=== PATIENT | female | born 1945 | race Caucasian/White ===

== ENCOUNTER 2018-06-15 08:47 | Day surgery (SDC) | payer MEDICARE ==
[2018-06-15] MEDS ORDERED: EPINEPHRINE 1 MG/ML AMPUL SQ ONE (08:48)
[2018-06-15] MEDS ORDERED: TETRACAINE HCL 0.5% 15 ML OPTH BTL OPTH ONE (08:48)
[2018-06-15] MEDS ORDERED: LIDOCAINE 2% MDV (20MG/ML) 20ML VIAL IV ONE (08:48)
[2018-06-15] MEDS ORDERED: CIPROFLOXACIN HCL 0.0015 GM, PHENYLEPHRINE HCL 0.05 GM, KETOROLAC TROMETHAMINE 0.000625 GM MC ONE ×5 (12:45)
[2018-06-15] MEDS ORDERED: FENTANYL PF 100MCG/2ML VIAL IV ONE (14:54)
[2018-06-15] MEDS ORDERED: PROPOFOL 10 MG/ML VIAL IV ONE (14:54)
--- NOTE | 2018-06-17 13:37 | Operative Note ---
DATE OF PROCEDURE: 06/15/18. PREOPERATIVE DIAGNOSIS: Nuclear sclerotic cataract, right eye. POSTOPERATIVE DIAGNOSIS: Nuclear sclerotic cataract, right eye. OPERATION: Phacoemulsification of cataractous lens with implantation of intraocular lens. LENS IMPLANT USED: Austin Model PCB00 + 24.0 diopters. COMPLICATIONS: None. PROCEDURE IN DETAIL: Following a retrobulbar and facial block, the patient was prepped and draped in the usual fashion for eye surgery. A lid speculum was placed in the right eye after which a 2.4 mm tunnel wound was placed at the temporal limbus and dissected into clear cornea. A paracentesis was placed at 2 o'clock hours to the left and right of the initial incision and the chamber deepened with Viscoelastic. The keratome was then used to enter the anterior chamber after which the continuous circular capsulorrhexis was accomplished without difficulty using a bent needle and a Utrata forceps. Hydrodissection and hydrodelineation of the lens was performed after which the nucleus of the lens was removed using the Phaco handpiece in the [id number] technique. The residual cortical material was irrigated and aspirated from the eye after which the bag and chamber were re-examined. The bag was re-inflated with Viscoelastic and the intraocular lens injected into the capsular bag where it centered well. The Viscoelastic was then copiously irrigated and aspirated from the eye after which the temporal tunnel wound and paracentesis were hydrated and the wounds were examined. They were noted to be watertight. The lid speculum was removed from the eye and the eye patched and shielded. The patient was transferred to the recovery room in satisfactory condition and given an appointment to be reexamined in the clinic later today or as directed by Dr. Briceno. JOB NUMBER: [id number] MTDD
== END 2018-06-15 11:45 | disposition home or self-care (01) ==
LOC: SUR 08:47
PROVIDERS: ATTEND Ophthalmology
DX: H25.11 Age-related nuclear cataract, right eye (principal); I10 Essential (primary) hypertension; E78.00 Pure hypercholesterolemia, unspecified; K21.9 Gastro-esophageal reflux disease without esophagitis; K57.90 Diverticulosis of intestine, part unspecified, without perforation or abscess without bleeding
CPT/HCPCS: 66984; 00142; J3010; J0171

== ENCOUNTER 2018-06-29 09:29 | Day surgery (SDC) | payer MEDICARE ==
[2018-06-29] MEDS ORDERED: LIDOCAINE 2% MDV (20MG/ML) 20ML VIAL IV ONE ×2 (09:30)
[2018-06-29] MEDS ORDERED: EPINEPHRINE 1 MG/ML AMPUL SQ ONE (09:30)
[2018-06-29] MEDS ORDERED: TETRACAINE HCL 0.5% 15 ML OPTH BTL OPTH ONE (09:30)
[2018-06-29] MEDS ORDERED: LIDOCAINE 1% MPF 100MG/10ML STERILE-PAK AMPULE IV ONE (09:30)
[2018-06-29] MEDS ORDERED: PROPOFOL 10 MG/ML VIAL IV ONE (09:30)
[2018-06-29] MEDS ORDERED: NEOMYCIN/POLY./DEXAM OPTH OINT OPTH ONE (09:30)
[2018-06-29] MEDS ORDERED: ALFENTANIL HCL 500 MCG/1ML, 2ML AMP IV ONE (09:30)
[2018-06-30] MEDS ORDERED: CIPROFLOXACIN HCL 0.0015 GM, PHENYLEPHRINE HCL 0.05 GM, KETOROLAC TROMETHAMINE 0.000625 GM MC ONE ×5 (09:00)
--- NOTE | 2018-07-01 14:08 | Operative Note ---
DATE OF PROCEDURE: 06/29/18. PREOPERATIVE DIAGNOSIS: Nuclear sclerotic cataract, left eye. POSTOPERATIVE DIAGNOSIS: Nuclear sclerotic cataract, left eye. OPERATION: Phacoemulsification of cataractous lens with implantation of intraocular lens. LENS IMPLANT USED: Austin Model PCB00 + 22.0 diopters. COMPLICATIONS: None. PROCEDURE IN DETAIL: Following a retrobulbar and facial block, the patient was prepped and draped in the usual fashion for eye surgery. A lid speculum was placed in the left eye after which a 2.4 mm tunnel wound was placed at the temporal limbus and dissected into clear cornea. A paracentesis was placed at 2 o'clock hours to the left and right of the initial incision and the chamber deepened with Viscoelastic. The keratome was then used to enter the anterior chamber after which the continuous circular capsulorrhexis was accomplished without difficulty using a bent needle and a Utrata forceps. Hydrodissection and hydrodelineation of the lens was performed after which the nucleus of the lens was removed using the Phaco handpiece in the [id number] technique. The residual cortical material was irrigated and aspirated from the eye after which the bag and chamber were re-examined. The bag was re-inflated with Viscoelastic and the intraocular lens injected into the capsular bag where it centered well. The Viscoelastic was then copiously irrigated and aspirated from the eye after which the temporal tunnel wound and paracentesis were hydrated and the wounds were examined. They were noted to be watertight. The lid speculum was removed from the eye and the eye patched and shielded. The patient was transferred to the recovery room in satisfactory condition and given an appointment to be reexamined in the clinic later today or as directed by Dr. Briceno. JOB NUMBER: [id number] [facility]
== END 2018-06-29 12:32 | disposition home or self-care (01) ==
LOC: SUR 09:29
PROVIDERS: ATTEND Ophthalmology
DX: H25.12 Age-related nuclear cataract, left eye (principal); I10 Essential (primary) hypertension; E78.00 Pure hypercholesterolemia, unspecified; Z86.73 Personal history of transient ischemic attack (TIA), and cerebral infarction without residual deficits
CPT/HCPCS: J0171; J3490

== ENCOUNTER 2019-01-29 11:15 | Day surgery (SDC) | payer MEDICARE ==
[2019-01-29] MEDS ORDERED: PROPOFOL 10 MG/ML VIAL IV ONE (11:16)
[2019-01-29] MEDS ORDERED: LIDOCAINE 2% MDV (20MG/ML) 20ML VIAL IV ONE (11:16)
--- NOTE | 2019-01-29 16:00 | Operative Note ---
DATE OF SURGERY: 01/29/2019 OPERATION: COLONOSCOPY to the cecum. INDICATION: Maternal history of colon cancer, high-risk screening. Last examination was 5 years ago. ANESTHESIA: Intravenous sedation was administered by the department of anesthesiology and included Diprivan titrated to effect. PROCEDURE: Following informed consent from this alert individual including a discussion of the risks and benefits of the procedure and an opportunity for the patient to ask questions, the patient was in the left lateral decubitus position. A digital rectal examination was performed. No abnormalities were noted. Following this, the Olympus [id number] video colonoscope was inserted into the rectum without resistance. The rectal mucosa had a normal appearance with normal folds and distensibility. The colonoscope was advanced up through the colon to the level of the cecum without much difficulty. Throughout the bowel the mucosa appeared normal, the folds were normal, and the bowel was fairly well distensible. Scattered diverticula were noted throughout the left colon. The cecum was defined by noting the appendiceal orifice and ileocecal valve. The colon preparation overall was good. From the base of the cecum, the colonoscope was then withdrawn. Again diverticulosis was noted in the left colon. No other changes were appreciated. Retroflexion in the rectum did reveal small internal hemorrhoids. The endoscope was straightened and withdrawn. The patient tolerated the procedure well and was returned to the recovery area in stable condition. IMPRESSION: 1. Left colonic diverticulosis. 2. Small internal hemorrhoids. RECOMMENDATIONS: The patient was advised she could have a recheck colonoscopy if she desires and is medically able in the next 5 years. She can otherwise follow up with Dr. Montiel. As always, thank you for allowing me to participate in the care of your patient. CC: MD TAYLOR Adair
== END 2019-01-29 13:30 | disposition home or self-care (01) ==
LOC: HOP 11:15
PROVIDERS: ATTEND Internal Medicine Gastroenterology
DX: Z12.11 Encounter for screening for malignant neoplasm of colon (principal); Z80.0 Family history of malignant neoplasm of digestive organs; K57.30 Diverticulosis of large intestine without perforation or abscess without bleeding; I10 Essential (primary) hypertension; E78.00 Pure hypercholesterolemia, unspecified; M19.90 Unspecified osteoarthritis, unspecified site

== ENCOUNTER 2019-03-02 16:08 | Emergency (ER) | payer MEDICARE ==
--- NOTE | 2019-03-02 16:16 | Emergency Department Record ---
History of Present Illness - General Chief Complaint: Abdominal Pain Stated Complaint: ABD PAIN Time Seen by Provider: 03/02/19 16:11 Source: Patient Mode of Arrival: Ambulatory Limitations: No limitations - History of Present Illness Initial Comments: 73 yo female presents with abdominal pain. The pain is on the left side. It is tender to palpation. She has associated loose stools. The onset was over the last one day. She has a history of recurrent diverticulitis. No fever. No vomiting. No blood in the stools. No dysuria. No rash or back pain. MD Complaint: Abdominal pain -: Days(s) Location: LUQ, LLQ Radiation: LUQ, LLQ Migration to: LUQ, LLQ Quality: Aching Consistency: Constant Improves With: Nothing Worsens With: Movement Context: Other Associated Symptoms: Diarrhea - Related Data Previous Rx's Medication Instructions Recorded Levofloxacin [Levaquin Tab] 500 mg PO DAILY #7 tab 03/02/19 Metronidazole [Flagyl] 500 mg PO Q8H #21 tablet 03/02/19 Allergies Allergy/AdvReac Type Severity Reaction Status Date / Time Penicillins Allergy Intermediate hives Verified 03/02/19 16:18 Sulfa (Sulfonamide Allergy Intermediate hives Verified 03/02/19 16:18 Antibiotics) ciprofloxacin [From Cipro] Allergy tendon Verified 03/02/19 16:18 separation ciprofloxacin HCl Allergy tendon Verified 03/02/19 16:18 [From Cipro] separation Review of Systems Constitutional: Denies: Chills, Fever, Malaise, Weakness Eyes: Denies: Eye discharge ENT: Denies: Congestion, Throat pain Respiratory: Denies: Cough, Dyspnea Cardiovascular: Denies: Chest pain, Palpitations, Syncope Endocrine: Denies: Fatigue, Polydipsia, Polyuria Gastrointestinal: Reports: Abdominal pain, Diarrhea. Denies: Constipation, Nausea, Vomiting Genitourinary: Denies: Dysuria, Urgency Musculoskeletal: Denies: Arthralgia, Back pain, Joint swelling, Myalgia Skin: Denies: Bruising, Change in color, Rash Neurological: Denies: Headache Psychiatric: Denies: Anxiety Hematological/Lymphatic: Denies: Easy bleeding, Easy bruising Past Medical History - SOCIAL HISTORY Smoking Status: Never smoker - RESPIRATORY Hx Respiratory Disorders: No - CARDIOVASCULAR Hx Cardio Disorders: Yes Hx Abnormal EKG: Yes (extra"little blip"-no problems per DR) Hx Edema: Yes (Bumex PRN) Hx Hypertension: Yes (meds good control) Hx Vascular Disease: Yes ("fibromuscular dysplasia-DR Lee from [facility]) - NEURO Hx Neuro Disorders: Yes 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) - GI Hx GI Disorders: Yes Hx Diverticulitis: Yes Hx Reflux: Yes (buffer from Aleve usage) - Hx Genitourinary Disorders: No - ENDOCRINE Hx Endocrine Disorders: No - MUSCULOSKELETAL Hx Musculoskeletal Disorders: Yes Hx Arthritis: Yes - PSYCH Hx Psych Problems: No - HEMATOLOGY/ONCOLOGY Hx Hematology/Oncology Disorders: No Family Medical History Hx Cancer: Father, Mother Hx Dementia: Mother Hx Heart Disease: Father Hx HTN: Mother Hx Resp Disorders: Mother *Resp Comment: allergies Physical Exam - General General Appearance: Alert, Oriented x3, Cooperative, No acute distress Limitations: No limitations - Head Head exam: Atraumatic, Normal inspection - Eye Eye exam: Normal appearance, Conjunctival injection - ENT ENT exam: Normal exam Ear exam: Normal external inspection Nasal Exam: Normal inspection Mouth exam: Normal external inspection - Neck Neck exam: Normal inspection - Respiratory Respiratory exam: Normal lung sounds bilaterally. negative: Respiratory distress - Cardiovascular Cardiovascular Exam: Regular rate, Normal rhythm, Normal heart sounds - GI/Abdominal GI/Abdominal exam: Soft, Tenderness (tender left lateral abdomen and LLQ. Soft. No rebound or guarding.). negative: Distended, Guarding, Rebound, Rigid - Rectal Rectal exam: Deferred - exam: Deferred - Extremities Extremities exam: Normal inspection. negative: Tenderness - Back Back exam: Denies: CVA tenderness (R), CVA tenderness (L), Tenderness - Neurological Neurological exam: Alert, Oriented X3 - Psychiatric Psychiatric exam: Normal affect, Normal mood. negative: Agitated, Anxious - Skin Skin exam: Dry, Intact, Normal color, Warm Course - Reevaluation(s) Reevaluation #1: 03/02/19 17:43 The CBC was normal The CMP was normal The UA is negative for signs if infection The CT scan demonstrates hepatic and renal cysts. Follow up MRI if indicated of the small areas noted in the L kidney. Prominent diverticulosis without d iverticulitis. 03/02/19 17:57 The results were reviewed with the patient. I discussed the normal findings. We discussed the symptoms clinically very consistent with her many episodes of diverticulitis. We discussed treating what clinically is possibly diverticulitis vs watchful waiting with the risk of worsening. The patient states she has had diverticulitis many times and this is identical to her symptoms. We discussed the risks of taking antibiotics vs watching again. She prefers treatment given the tenderness and symptoms vs watching. She understands this is not risk free (reactions, diarrhea, tendonitis). She had tendonitis with cipro in the past but no issues with Levaquin. I explained they are the same class and the risk is still there. She understands. Her allergy list makes her treatment options limited. She also will consider a little more time of monitoring at home. Either way, I encourage her strongly to return if worse for a recheck this weekend in the ED. 03/02/19 18:10 Medical Decision Making - Lab Data Result diagrams: 03/02/19 16:15 03/02/19 16:15 Disposition Disposition: Discharge Clinical Impression: Diarrhea, Abdominal pain Disposition: Home, Self-Care Condition: (1) Good Instructions: Acute Diarrhea (ED), Abdominal Pain (ED) Additional Instructions: Call your doctor for the next available follow up appointment Review this ER visit and the tests performed with your family doctor Return to the ER for a recheck if worse, any new concerns or questions Take the prescriptions provided as directed Prescriptions: Metronidazole [Flagyl] 500 mg PO Q8H #21 tablet Levofloxacin [Levaquin Tab] 500 mg PO DAILY #7 tab Forms: Patient Portal Access Time of Disposition: 17:57 Quality - Quality Measures Quality Measures: N/A - Blood Pressure Screening Does Patient Have Any of the Following: Active Dx of HTN Blood Pressure Classification: Hypertensive Reading Systolic Measurement: 168 Diastolic Measurement: 75 Screening for High Blood Pressure: Patient Exclusion, Hx of HTN [G9744]
[2019-03-02 16:23] LABS: ABSOLUTE NEUTROPHIL COUNT 5.95; EOS % 4.1 % (0-6); GRAN % 63.6 % (47-80); HEMATOCRIT 47.1 % (35.0-47.0); HEMOGLOBIN 15.4 gm/dl (11.6-16.0); LYMPH % 23.6 % (16-45); MEAN CELL VOLUME 87.2 fl (81-97); MEAN CORPUSCULAR HEMOGLOBIN 28.5 pg (27-33); MEAN CORPUSCULAR HGB CONC 32.7 g/dl (32-36); MEAN PLATELET VOLUME 10.1 fl (7.4-10.4); MONO % 7.7 % (0-9); PLATELET COUNT 238 K/uL (130-400); RED CELL DISTRIBUTION WIDTH 15.2 % (11.5-14.5); WHITE BLOOD COUNT W/O DIFF 9.4 K/uL (4.2-12.2)
[2019-03-02 16:34] LABS: BLOOD UREA NITROGEN 19 mg/dL (8-23); CREATININE 0.7 mg/dL (0.5-0.9); EST GLOMERULAR FILTRATION RATE > 60 mL/min
[2019-03-02 16:37] LABS: GLUCOSE,RANDOM 106 mg/dL (74-109)
[2019-03-02 17:34] LABS: URINE APPEARANCE CLEAR; URINE BILIRUBIN NEGATIVE (NEGATIVE); URINE BLOOD TRACE-I (NEGATIVE); URINE COLOR YELLOW; URINE GLUCOSE (UA) NEGATIVE (NEGATIVE); URINE KETONE NEGATIVE (NEGATIVE); URINE LEUKOCYTE ESTERASE NEGATIVE (NEGATIVE); URINE NITRITE NEGATIVE (NEGATIVE); URINE PROTEIN NEGATIVE (NEGATIVE); URINE UROBILINOGEN 0.2 E.U./dL (0.20 - 1.00)
[2019-03-02 17:53] LABS: URINE EPITHELIAL CELLS 0 - 2 (FEW); URINE MUCUS LIGHT; URINE RBC 0 - 2 (NONE SEEN); URINE WBC 0 - 2 (0-2/hpf)
--- NOTE | 2019-03-05 19:28 | CT SCAN REPORT ---
DATE: 03/02/2019 at 5:06 p.m. EXAM: EMERGENCY CT OF THE ABDOMEN AND PELVIS WITH CONTRAST. HISTORY: LEFT LOWER QUADRANT ABDOMINAL PAIN, DIARRHEA. TECHNIQUE: Axial CT scan of the abdomen and pelvis was obtained following intravenous contrast. No oral contrast was utilized at the referring physician's request. Please see the medical record for intravenous contrast specifics. COMPARISON: None. FINDINGS: No calcified gallstones are seen within the gallbladder. There are at least a couple of small, low-attenuation foci in the left lobe of the liver, the largest in the medial segment measuring about 2.1 cm in size with a CT density of 5. This is consistent with a cyst. No definite splenic, adrenal, or pancreatic mass identified. There are a couple of right renal cysts measuring about 2.8 cm in the upper pole with a CT density of 8 and 2.3 cm in the lower pole with a CT density of 12, both consistent with cysts. Low-attenuation mass 1.8 cm arising from the anterior aspect of the lower pole of the left kidney has a CT density of 19 which is borderline for a typical simple cyst. This probably is just another cyst, but if not previously documented, follow-up nonemergent MRI could be obtained to confirm if clinically warranted. There is also likely a second, very tiny cyst laterally in the upper pole of the left kidney, too small to accurately measure on the CT. There also appears to be a small nonobstructing calculus within the left kidney. Postoperative left total hip arthroplasty creating considerable artifact in the low pelvis. Evaluation of the bowel is extremely limited without oral contrast. Prominent diverticulosis in the left side of the colon, but no definite diverticulitis evident. Tiny umbilical hernia containing adipose tissue but no bowel. No appendicitis identified. No free intraperitoneal air or free intraperitoneal fluid identified. Prominent facet joint arthropathy in the lower lumbar spine and multilevel degenerative disc disease in the lower thoracic and lumbar spine. Mild anterior subluxation of L4 on L5 appears to be on a degenerative basis related to the extensive facet joint arthropathy. Prominent spurring in the lower thoracic spine. IMPRESSION: 1. A COUPLE OF LOW-ATTENUATION MASSES IN THE LEFT LOBE OF THE LIVER, THE LARGEST ABOUT 2.1 CM IN SIZE, BOTH LIKELY REPRESENTING SMALL CYSTS. 2. A COUPLE OF RIGHT RENAL CYSTS PRESENT. A COUPLE OF SMALLER LOW-ATTENUATION MASSES IN THE LEFT KIDNEY, THE LARGEST ABOUT 1.8 CM IN SIZE WITH SOMEWHAT EQUIVOCAL CT DENSITY MEASUREMENT. THESE ARE PROBABLY ALSO CYSTS, ALTHOUGH COULD BE FURTHER ASSESSED WITH NONEMERGENT MRI OF THE KIDNEYS IF CLINICALLY DESIRED. 3. POSTOPERATIVE LEFT TOTAL HIP ARTHROPLASTY. 4. PROMINENT DIVERTICULOSIS LEFT SIDE OF THE COLON, BUT NO DEFINITE DIVERTICULITIS. 5. NO FREE AIR OR FREE FLUID EVIDENT. 6. MULTILEVEL DEGENERATIVE CHANGE IN THE SPINES. Job Number: [id number] MTDD
== END 2019-03-02 18:30 | disposition home or self-care (01) ==
LOC: ER 16:08
DX: R19.7 Diarrhea, unspecified (principal); R10.84 Generalized abdominal pain; K57.90 Diverticulosis of intestine, part unspecified, without perforation or abscess without bleeding; I10 Essential (primary) hypertension
CPT/HCPCS: 99283; 99284; 85025; 80048; 81001; 74177; Q9967

== ENCOUNTER 2019-05-29 15:18 | Emergency (ER) | payer MEDICARE ==
--- NOTE | 2019-05-29 15:58 | Emergency Department Record ---
History of Present Illness - General Chief Complaint: Wound, puncture Stated Complaint: fish hook lt thumb Time Seen by Provider: 05/29/19 15:46 Source: Patient, Family Mode of Arrival: Ambulatory Limitations: No limitations - History of Present Illness Initial Commments: 73 yo female presents with a fish hook stuck in the thumb. Tetanus is up to date. She hooked the Left thumb and her purse. No other injury. Onset/Timin -: Minutes(s) Extremity Location: Left: Hand Place: Outdoors Context: Accidental Associated Symptoms: None - [place] Coma Scale Eye Response: (4) Open spontaneously Motor Response: (6) Obeys commands Verbal Response: (5) Oriented [place] Total: 15 - Related Data Hx Tetanus Toxoid Vaccination: Yes Year of Tetanus Vaccination: 2018 Patient Tetanus UTD (within 5 yrs): Yes Allergies Allergy/AdvReac Type Severity Reaction Status Date / Time Penicillins Allergy Intermediate hives Unverified 05/02/19 10:54 Sulfa (Sulfonamide Allergy Intermediate hives Unverified 05/02/19 10:54 Antibiotics) ciprofloxacin [From Cipro] Allergy tendon Unverified 05/02/19 10:54 separation ciprofloxacin HCl Allergy tendon Unverified 05/02/19 10:54 [From Cipro] separation Travel Screening - Travel/Exposure Within Last 30 Days Have you traveled within the last 30 days?: No Review of Systems Constitutional: Denies: Chills, Fever Eyes: Denies: Vision change ENT: Denies: Congestion, Throat pain Respiratory: Denies: Cough Cardiovascular: Denies: Syncope Endocrine: Denies: Fatigue Gastrointestinal: Denies: Abdominal pain, Diarrhea, Nausea, Vomiting Musculoskeletal: Denies: Arthralgia, Back pain, Myalgia Skin: Reports: Other (FB). 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) - GI Hx GI Disorders: Yes Hx Diverticulitis: Yes Hx Reflux: Yes (buffer from Aleve usage) - Hx Genitourinary Disorders: No - ENDOCRINE Hx Endocrine Disorders: No - MUSCULOSKELETAL Hx Musculoskeletal Disorders: Yes Hx Arthritis: Yes - PSYCH Hx Psych Problems: No - HEMATOLOGY/ONCOLOGY Hx Hematology/Oncology Disorders: No Family Medical History Any Significant Family History?: Yes Hx Cancer: Father, Mother Hx Dementia: Mother Hx Heart Disease: Father Hx HTN: Mother Hx Resp Disorders: Mother *Resp Comment: allergies Physical Exam - General General Appearance: Alert, Oriented x3, Cooperative, No acute distress Limitations: No limitations - Head Head exam: Atraumatic, Normal inspection - Eye Eye exam: Normal appearance - ENT ENT exam: Normal exam Ear exam: Normal external inspection Nasal Exam: Normal inspection Mouth exam: Normal external inspection - Neck Neck exam: Normal inspection - Cardiovascular Peripheral Pulses: 2+: Radial (L) - Extremities Extremities exam: Normal capillary refill. negative: Normal inspection (Fish hook stuck in the left thumb) Image of Hand: 1 - fish hook - Neurological Neurological exam: Alert, Oriented X3 - Skin Skin exam: Other (FB - fish hook) Course Vital Signs 05/29/19 15:22 Temperature 98.3 F Pulse Rate 63 Respiratory 20 Rate Blood Pressure 141/86 Pulse Ox 96 - Reevaluation(s) Reevaluation #1: Last tetanus was 2 weeks ago 05/29/19 16:16 The area was prepped with betadine Lidocaine 1cc local The tip was already through so the base of the hook was cut then the hook was pushed through Tolerated well. Disposition Disposition: Discharge Clinical Impression: Fish hook injury of hand Qualifiers: Encounter type: initial encounter Laterality: left Qualified Code(s): S69.92XA - Unspecified injury of left wrist, hand and finger(s), initial encounter Disposition: Home, Self-Care Condition: (1) Good Instructions: Soft Tissue Foreign Body (ED) Additional Instructions: Keep the area clean Return if you have any concerns with the healing Forms: Patient Portal Access Time of Disposition: 15:59 Quality - Quality Measures Quality Measures: N/A - Blood Pressure Screening Does Patient Have Any of the Following: No Blood Pressure Classification: Pre-Hypertensive BP Reading Systolic Measurement: 141 Diastolic Measurement: 86 Screening for High Blood Pressure: < Pre-Hypertensive BP, F/U Documented > [G8950] Pre-Hypertensive Follow-up Interventions: Referral to alternative/primary care provider.
== END 2019-05-29 16:15 | disposition home or self-care (01) ==
LOC: ER 15:18
DX: S60.352A Superficial foreign body of left thumb, initial encounter (principal); W45.8XXA Other foreign body or object entering through skin, initial encounter; Y93.89 Activity, other specified
CPT/HCPCS: 99283

== ENCOUNTER 2019-08-12 15:24 | Emergency (ER) | payer MEDICARE ==
--- NOTE | 2019-08-12 16:11 | Emergency Department Record ---
History of Present Illness - General Chief Complaint: Fall Injury Stated Complaint: TRIPPED OFF CURB FACE FIRST INTO ROAD Time Seen by Provider: 08/12/19 15:56 Source: Patient, RN notes reviewed Mode of Arrival: Ambulatory - History of Present Illness Initial Comments: patient tripped on the side walk and hit her head, swelling of face and nose and NoLOC and jaw is working appropriately and neck is not painful on palpation . no other injuries on he body. Patient had a recent tetnus shot Complaint: Fall Onset/Timin -: Hour(s) Fall From: Standing When Fall Occurred: 1 hour [employer] Fall Witnessed: Yes, by family Place Fall Occurred: Street Loss of Consciousness: None Prolonged Down Time?: No Symptoms Prior to Fall: None Location: Head, Face Severity: Moderate Severity scale (1-10): 6 Quality: Aching Context: Tripped/slipped Associated Symptoms: Denies - [place] Coma Scale Eye Response: (4) Open spontaneously Motor Response: (6) Obeys commands Verbal Response: (5) Oriented [place] Total: 15 - Related Data Allergies Allergy/AdvReac Type Severity Reaction Status Date / Time Penicillins Allergy Intermediate hives Verified 08/12/19 15:39 Sulfa (Sulfonamide Allergy Intermediate hives Verified 08/12/19 15:39 Antibiotics) ciprofloxacin [From Cipro] Allergy tendon Verified 08/12/19 15:39 separation ciprofloxacin HCl Allergy tendon Verified 08/12/19 15:39 [From Cipro] separation Travel Screening - Travel/Exposure Within Last 30 Days Have you traveled within the last 30 days?: No - Travel/Exposure Within Last Year Have you traveled outside the [place] in the last year?: No - Additonal Travel Details Have you been exposed to anyone with a communicable illness?: No - Travel Symptoms Symptom Screening: None Review of Systems Reviewed: No additional complaints except as noted below Constitutional: Reports: As per HPI. Denies: Chills, Fever, Malaise, Night sweats, Weakness, Weight change Eyes: Reports: As per HPI. Denies: Eye discharge, Eye pain, Photophobia, Vision change ENT: Reports: As per HPI, Other (facial swelling). Denies: Congestion, Dental pain, Ear pain, Epistaxis, Hearing loss, Throat pain Respiratory: Reports: As per HPI. Denies: Cough, Dyspnea, Hemoptysis, Stridor, Wheezes Cardiovascular: Reports: As per HPI. Denies: Arrhythmia, Chest pain, Dyspnea on exertion, Edema, Murmurs, Orthopnea, Palpitations, Paroxysmal nocturnal dyspnea, Rheumatic Fever, Syncope Endocrine: Reports: As per HPI. Denies: Fatigue, Heat or cold intolerance, Polydipsia, Polyuria Gastrointestinal: Reports: As per HPI. Denies: Abdominal pain, Constipation, Diarrhea, Hematemesis, Hematochezia, Melena, Nausea, Vomiting Genitourinary: Reports: As per HPI. Denies: Abnormal menses, Discharge, Dyspareunia, Dysuria, Frequency, Hematuria, Incontinence, Retention, Urgency Musculoskeletal: Reports: As per HPI. Denies: Arthralgia, Back pain, Gout, Joint swelling, Myalgia, Neck pain Skin: Reports: As per HPI. Denies: Bruising, Change in color, Change in hair/nails, Lesions, Pruritus, Rash Neurological: Reports: As per HPI. Denies: Abnormal gait, Confusion, Headache, Numbness, Paresthesias, Seizure, Tingling, Tremors, Vertigo, Weakness Psychiatric: Reports: As per HPI. Denies: Anxiety, Auditory hallucinations, Depression, Homicidal thoughts, Suicidal thoughts, Visual hallucinations Hematological/Lymphatic: Reports: As per HPI. 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) - GI Hx GI Disorders: Yes Hx Diverticulitis: Yes Hx Reflux: Yes (buffer from Aleve usage) - Hx Genitourinary Disorders: No - ENDOCRINE Hx Endocrine Disorders: No - MUSCULOSKELETAL Hx Musculoskeletal Disorders: Yes Hx Arthritis: Yes - PSYCH Hx Psych Problems: No - HEMATOLOGY/ONCOLOGY Hx Hematology/Oncology Disorders: No Family Medical History Any Significant Family History?: Yes Hx Cancer: Father, Mother Hx Dementia: Mother Hx Heart Disease: Father Hx HTN: Mother Hx Resp Disorders: Mother *Resp Comment: allergies Physical Exam - General General Appearance: Alert, Oriented x3, Cooperative, No acute distress - Head Head exam: Other (swelling of forehead right side) - Eye Eye exam: Normal appearance, PERRL Pupils: Normal accommodation - ENT ENT exam: Normal exam, Mucous membranes moist, Normal external ear exam, Normal orophraynx, TM's normal bilaterally Ear exam: Normal external inspection. negative: External canal tenderness Nasal Exam: Normal inspection. negative: Discharge, Sinus tenderness Mouth exam: Normal external inspection, Tongue normal Teeth exam: Normal inspection. negative: Dental caries Throat exam: Normal inspection. negative: Tonsillar erythema, Tonsillar exudate - Neck Neck exam: Normal inspection, Full ROM. negative: Tenderness - Respiratory Respiratory exam: Normal lung sounds bilaterally. negative: Respiratory distress - Cardiovascular Cardiovascular Exam: Regular rate, Normal rhythm, Normal heart sounds - GI/Abdominal GI/Abdominal exam: Soft, Normal bowel sounds. negative: Tenderness - Rectal Rectal exam: Deferred - exam: Deferred - Extremities Extremities exam: Normal inspection, Full ROM, Normal capillary refill. ne gative: Tenderness - Back Back exam: Reports: Normal inspection, Full ROM. Denies: Muscle spasm, Rash noted, Tenderness - Neurological Neurological exam: Alert, Normal gait, Oriented X3, Reflexes normal - Psychiatric Psychiatric exam: Normal affect, Normal mood - Skin Skin exam: Dry, Intact, Normal color, Warm Course Vital Signs 08/12/19 15:42 Temperature 98.4 F Pulse Rate 64 Respiratory 20 Rate Blood Pressure 160/91 Pulse Ox 97 Medical Decision Making - Data Complexity MDM Data: X-Ray Ordered and/or Reviewed (ct head neg for bleed, CT neck negative for fractures) Disposition Clinical Impression: Contusion of head Qualifiers: Encounter type: initial encounter Contusion of head detail: unspecified part of head Qualified Code(s): S00.93XA - Contusion of unspecified part of head, initial encounter Disposition: Home, Self-Care Condition: (1) Good Instructions: Head Injury (ED) Additional Instructions: follow up with family Dr in 4 days Forms: Patient Portal Access Time of Disposition: 17:07 Quality - Quality Measures Quality Measures: N/A - Blood Pressure Screening Does Patient Have Any of the Following: No, Active Dx of HTN Blood Pressure Classification: Hypertensive Reading Systolic Measurement: 160 Diastolic Measurement: 91 Screening for High Blood Pressure: Patient Exclusion, Hx of HTN [[id number]]
--- NOTE | 2019-08-12 16:56 | CT SCAN REPORT ---
EXAMINATION: CT Cervical Spine without IV Contrast EXAM DATE: 08/12/2019 4:37 PM TECHNIQUE: Standard protocol cervical spine CT imaging was performed without intravenous contrast. Co makeda and sagittal images were reconstructed. INDICATION: fall COMPARISON: None ENCOUNTER: Initial FINDINGS: There is no acute fracture. Degenerative grade 1 anterolisthesis of C4 on C5 and C3 on C4. Severe degenerative endplate change at C5-6. Degenerative facet changes most significant on the left at C2-3 and C3-4 as well as on the right at C4-5. IMPRESSION: No acute fracture or traumatic subluxation. Dictated by: Jayson De La Rosa MD on 08/12/2019 4:51 PM. .
--- NOTE | 2019-08-12 17:02 | CT SCAN REPORT ---
EXAMINATION: CT Head without IV Contrast EXAM DATE: 08/12/2019 4:37 PM TECHNIQUE: Standard protocol CT images of the head were obtained without intravenous contrast. Daley l and sagittal reconstructed images were created. INDICATION: fall COMPARISON: None HAND DOMINANCE: Unknown. ENCOUNTER: Initial FINDINGS: Acute Intracranial: There is no evidence for acute intracranial bleed. There is no mass effect or mid line shift. CSF Spaces: There is mild cerebral atrophy and proportional ventricular enlargement. [place] Matter Attenuation: There is no acute cortical infarct. An old area of infarct within cephalization is seen of the right frontal lobe. Mild point matter chronic small vessel ischemic [place]. Skull: No evidence for fracture. Soft tissue hematoma over the right frontal scalp Orbits And Sinuses: Unremarkable IMPRESSION: No acute intracranial pathology. 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 Dictated by: Jayson De La Rosa MD on 08/12/2019 4:54 PM. .
== END 2019-08-12 17:22 | disposition home or self-care (01) ==
LOC: ER 15:24
DX: S00.93XA Contusion of unspecified part of head, initial encounter (principal); W18.09XA Striking against other object with subsequent fall, initial encounter; Y92.414 Local residential or business street as the place of occurrence of the external cause; I10 Essential (primary) hypertension
CPT/HCPCS: 70450; 72125; 99284